=== PATIENT | male | born 1950 | race Caucasian/White ===

== ENCOUNTER 2019-03-12 17:55 | Emergency (ER) | payer MEDICARE ==
[~2019-03-12] VITALS: Ht 167.6 cm; Wt 63.5 kg
[2019-03-12 18:16] VITALS: BP 166/80
[2019-03-12] MEDS ORDERED: EPINEPHrine 1 MG/ML VIAL IM STA (18:17)
[2019-03-12] MEDS ORDERED: methylPREDNISolone SOD SUCC PF 125 MG/2 ML VIAL. ONE (18:18)
[2019-03-12] MEDS ORDERED: EPINEPHrine 1 MG/ML VIAL ONE (18:18)
[2019-03-12] MEDS ORDERED: FAMOTIDINE 20 MG/2 ML VIAL ONE (18:18)
--- NOTE | 2019-03-12 18:25 | PHYS DOC ---
Adult General Chief Complaint Chief Complaint: INSECT BITE HPI HPI Patient is a 68 year old male who presents to the ER after being stung by bee around 5:30 PM when he was mowing. The patient has had a previous stinging and had an anaphylactic reaction to it so patient came to the ER. The patient states he is out of his EpiPen. States that he feels his throat is starting to close. The patient states that his pain levels 3 out of 10 in severity. Did not taking medicine prior to arrival. Review of Systems Review of Systems Constitutional: Denies fever or chills [] Eyes: Denies change in visual acuity, redness, or eye pain [] HENT: Reports throat swelling. Respiratory: Denies cough or shortness of breath [] Cardiovascular: No additional information not addressed in HPI [] GI: Denies abdominal pain, nausea, vomiting, bloody stools or diarrhea [] : Denies dysuria or hematuria [] Musculoskeletal: Denies back pain or joint pain [] Integument: Denies rash or skin lesions [] Neurologic: Denies headache, focal weakness or sensory changes [] Endocrine: Denies polyuria or polydipsia [] Complete systems were reviewed and found to be within normal limits, except as documented in this note. Current Medications Current Medications Current Medications Medications (Trade) Dose Ordered Sig/Rolando Start Time Stop Time Status Last Admin Dose Admin Diphenhydramine HCl (Benadryl) 50 mg 1X ONCE 03/12/19 18:30 03/12/19 18:31 UNV 03/12/19 18:27 50 MG Epinephrine HCl (Adrenalin) 0.3 mg 1X STAT 03/12/19 18:17 03/12/19 18:18 UNV 03/12/19 18:20 0.3 MG Famotidine (Pepcid Vial) 20 mg STK-MED ONCE 03/12/19 18:18 03/12/19 18:19 DC Methylprednisolone Sodium Succinate (SOLU-Medrol 125MG VIAL) 125 mg 1X ONCE 03/12/19 18:30 03/12/19 18:31 UNV 03/12/19 18:27 125 MG Physical Exam Physical Exam Constitutional: Well developed, well nourished, no acute distress, non-toxic appearance. [] HENT: Normocephalic, atraumatic, bilateral external ears normal, oropharynx moist, no oral exudates, nose normal. [] Eyes: PERRLA, EOMI, conjunctiva normal, no discharge. [] Neck: Normal range of motion, swelling to left side of neck and erythema, no st ridor. Cardiovascular:Heart rate regular rhythm, no murmur [] Lungs & Thorax: Bilateral breath sounds clear to auscultation [] Abdomen: Bowel sounds normal, soft, no tenderness, no masses, no pulsatile masses. [] Skin: Warm, dry, no erythema, no rash. [] Back: No tenderness, no CVA tenderness. [] Extremities: No tenderness, no cyanosis, no clubbing, ROM intact, no edema. [] Neurologic: Alert and oriented X 3, normal motor function, normal sensory function, no focal deficits noted. [] Psychologic: Affect normal, judgement normal, mood normal. [] Current Patient Data Vital Signs Vital Signs Date Time Temp Pulse Resp B/P (MAP) Pulse Ox O2 Delivery O2 Flow Rate FiO2 03/12/19 18:16 97.9 74 20 166/80 (108) 94 Room Air 97.9 EKG EKG [] Radiology/Procedures Radiology/Procedures [] Course & Med Decision Making Course & Med Decision Making Pertinent Labs and Imaging studies reviewed. (See chart for details) Ordered Epi IM, benadryl, and solumedrol. Patient improved after EpiPen. Will d/c home with script for Epi Pen. Dragon Disclaimer Dragon Disclaimer This electronic medical record was generated, in whole or in part, using a voice recognition dictation system. Departure Departure Impression: Primary Impression: Allergic reaction to bee sting Disposition: 01 HOME, SELF-CARE Condition: STABLE Referrals: DERRELL DUONG (PCP) Patient Instructions: Bee, Wasp, or Hornet Sting, Epinephrine injection (Auto- injector) Additional Instructions: Thank you for visiting [facility]. We appreciate you trusting us with your care. If any additional problems come up don't hesitate to return to visit us. Please follow up with your primary care provider so they can plan additional care if needed and know about the problem that you had. If symptoms worsen come back to the Emergency Department. Any concerning symptoms that start such as chest pain, shortness of air, weakness or numbness on one side of the body, running high fevers or any other concerning symptoms return to the ER. Please fill your medications at any pharmacy and follow the prescription instructions. Please come to ER after using Epi pen. Scripts Epinephrine (EPIPEN 2-NANDO) 0.3 Mg/0.3 Ml Auto.injct 0.3 MG IJ 1X PRN for ANAPHYLAXIS, #1 SYR Prov: EDILIA VELEZ APRN 03/12/19 EDILIA VELEZ APRN Mar 12, 2019 18:25
[2019-03-12] MEDS ORDERED: diphenhydrAMINE 50 MG/ML VIAL ONE (18:26)
[2019-03-12] MEDS ORDERED: methylPREDNISolone SOD SUCC PF 125 MG/2 ML VIAL. IV ONE (18:30)
[2019-03-12] MEDS ORDERED: diphenhydrAMINE 50 MG/ML VIAL IVP ONE (18:30)
[2019-03-12] MEDS ORDERED: EPIPEN 2-P0.3 MG/0.3 IJ (19:27)
== END 2019-03-12 19:35 | disposition home or self-care (01) ==
LOC: ER 17:55
DX: T63.441A Toxic effect of venom of bees, accidental (unintentional), initial encounter (principal); T78.40XA Allergy, unspecified, initial encounter; Y92.89 Other specified places as the place of occurrence of the external cause
CPT/HCPCS: 96372; 96374; 96375; 99284; J0171; J1200; J2930

== ENCOUNTER 2020-03-01 19:29 | Emergency (ER) | payer MEDICARE ==
[~2020-03-01] VITALS: Ht 167.6 cm; Wt 62.7 kg
[~2020-03-01 19:29] MED LIST: EPIPEN 2-P0.3 MG/0.3 IJ
[2020-03-01] MEDS ORDERED: IV NORMAL SALINE 500ML BAG 1,000 ML IV ONE (20:15)
[2020-03-01] MEDS ORDERED: FAMOTIDINE 20 MG/2 ML VIAL IVP ONE (20:15)
[2020-03-01] MEDS ORDERED: diphenhydrAMINE 50 MG/ML VIAL IV ONE (20:15)
[2020-03-01] MEDS ORDERED: EPINEPHrine 1 MG/ML VIAL IM ONE (20:15)
[2020-03-01] MEDS ORDERED: methylPREDNISolone SOD SUCC PF 125 MG/2 ML VIAL. IV ONE (20:15)
[2020-03-01] MEDS ORDERED: ASPI-630 PO (20:22)
[2020-03-01] MEDS ORDERED: PRAV80TA2 PO (20:23)
[2020-03-01] MEDS ORDERED: EPIPEN 2-P0.3 MG/0.3 IM (20:23)
[2020-03-01] MEDS ORDERED: NITR0.4T24 SL (20:23)
[2020-03-01] MEDS ORDERED: IV NORMAL SALINE 1000ML BAG 1,000 ML IV ONE (20:30)
--- NOTE | 2020-03-01 20:42 | PHYS DOC ---
Past Medical History Past Medical History: High Cholesterol, Kidney Stone, [place] Past Surgical History: Other Additional Past Surgical Histo: back surgery, shoulder, lithrotripsy, cardiac stents, Smoking Status: Never Smoker Alcohol Use: None Drug Use: None General Adult EDM: Chief Complaint: ALLERGIC REACTION HPI: HPI: The history was obtained from the patient. Patient is a 69-year-old male with PMH coronary artery disease, [place], hyperlipidemia, allergies to bee stings who presents with a chief complaint of allergic reaction. Patient states 1 hour prior to arrival he was stung on the dorsal aspect of his left hand. He notes localized swelling in that area. He also states that he feels as though his tongue is swelling. He denies any difficulty breathing. Denies any wheezes. Denies any rash or vomiting. States he has had previous bee stings with much more severe reactions. He did try 125 mg Benadryl tablet prior to arrival. He denies any chest pain. No other complaints. Review of Systems: Review of Systems: Constitutional: Denies fever or chills. [] Eyes: Denies change in visual acuity. [] HENT: Positive for throat swelling Respiratory: Denies cough or shortness of breath. [] Cardiovascular: Denies chest pain or edema. [] GI: Denies abdominal pain, nausea, vomiting, bloody stools or diarrhea. [] : Denies dysuria. [] Musculoskeletal: Denies back pain or joint pain. [] Integument: Denies rash. [] Neurologic: Denies headache, focal weakness or sensory changes. [] Endocrine: Denies polyuria or polydipsia. [] Lymphatic: Denies swollen glands. [] Psychiatric: Denies depression or anxiety. [] Heart Score: Risk Factors: Risk Factors: DM, Current or recent (<one month) smoker, HTN, HLP, family history of CAD, obesity. Risk Scores: Score 0 - 3: 2.5% MACE over next 6 weeks - Discharge Home Score 4 - 6: 20.3% MACE over next 6 weeks - Admit for Clinical Observation Score 7 - 10: 72.7% MACE over next 6 weeks - Early Invasive Strategies Current Medications: Current Medications Medications (Trade) Dose Ordered Sig/Rolando Start Time Stop Time Status Last Admin Dose Admin Diphenhydramine HCl (Benadryl) 25 mg 1X ONCE 03/01/20 20:15 03/01/20 20:24 DC 03/01/20 20:20 25 MG Epinephrine HCl (Adrenalin) 0.3 mg 1X ONCE 03/01/20 20:15 03/01/20 20:24 DC 03/01/20 20:20 0.3 MG Famotidine (Pepcid Vial) 20 mg 1X ONCE 03/01/20 20:15 03/01/20 20:24 DC 03/01/20 20:20 20 MG Methylprednisolone Sodium Succinate (SOLU-Medrol 125MG VIAL) 125 mg 1X ONCE 03/01/20 20:15 03/01/20 20:24 DC 03/01/20 20:20 125 MG Sodium Chloride 1,000 ml @ 100 mls/hr 1X ONCE 03/01/20 20:30 03/02/20 06:29 03/01/20 20:34 100 MLS/HR Allergies: Allergies: Allergies Coded Allergies Type Severity Reaction Last Updated Verified bee venom protein (honey bee) Allergy Unknown ANAPHALXIS - HAS EPI PEN 03/01/20 Yes ciprofloxacin Allergy Unknown RASH 03/01/20 Yes Physical Exam: PE: Constitutional: Well developed, well nourished, no acute distress, non-toxic appearance. [] HENT: Normal phonation. No trismus. No tonsillar swelling appreciated. No stridulous breath sounds noted over the anterior neck Eyes: PERRLA, EOMI, conjunctiva normal, no discharge. [] Neck: Normal range of motion, no tenderness, supple, no stridor. [] Cardiovascular:Heart rate regular rhythm, no murmur [] Lungs & Thorax: Bilateral breath sounds clear to auscultation [] Abdomen: Bowel sounds normal, soft, no tenderness, no masses, no pulsatile masses. [] Skin: Warm, dry, no erythema, no rash. [] Back: No tenderness, no CVA tenderness. [] Extremities: Mild localized swelling over the bee sting site on the dorsum of the left hand. No retained stinger identified. Neurologic: Alert and oriented X 3, normal motor function, normal sensory function, no focal deficits noted. [] Psychologic: Affect normal, judgement normal, mood normal. [] Current Patient Data: Vital Signs: Vital Signs Date Time Temp Pulse Resp B/P (MAP) Pulse Ox O2 Delivery O2 Flow Rate FiO2 03/01/20 20:07 98.8 59 18 194/80 (118) 97 Room Air 98.8 EKG: EKG: [] Radiology/Procedures: Radiology/Procedures: [] Course & Med Decision Making: Course & Med Decision Making Pertinent Labs and Imaging studies reviewed. (See chart for details) Patient is a 69-year-old male who presents with a complaint of allergic reaction. He does report some throat closing sensation. Given this intramuscular epinephrine was administered. Additional IV Solu-Medrol, Pepcid, and Benadryl were administered. He was monitored closely. He states his symptoms have improved significantly while in the emergency department. Overall my initial examination patient did not show signs of respiratory compromise. I do feel is reasonable to discharge patient home. He will be given a short course of oral steroids to go home with. He does understand the signs and symptoms to watch out for regarding return to the emergency department. He was instructed to follow-up with a primary care physician. Return precautions discussed and understood. Stable for discharge home. Andrew Disclaimer: Andrew Disclaimer: This electronic medical record was generated, in whole or in part, using a voice recognition dictation system. Departure Departure Disposition: 01 HOME, SELF-CARE Condition: GOOD Referrals: UNKNOWN PCP NAME (PCP) Patient Instructions: Anaphylactic Reaction Additional Instructions: [facility] [address] [place] [address] [facility] [address] [place] [address] [facility] [address] [facility] [place] [address] [facility] [address] [place] [address] [facility] [address] [place] [address] [address] [place] [address] [address] [place] [address] [facility] [address] [place] [address] [facility] [address] [place] [address] [id number] [place] [address] Scripts Prednisone (PREDNISONE) 20 Mg Tablet 1 TAB PO DAILY for 5 Days, #5 TAB Prov: TIA ORELLANA DO 03/01/20 Justicifation of Admission Dx: Justifications for Admission: Justification of Admission Dx: N/A TIA ORELLANA DO Mar 01, 2020 20:41
[2020-03-01] MEDS ORDERED: PRED20TA PO (21:32)
[2020-03-01 21:42] VITALS: BP 148/65
== END 2020-03-01 21:45 | disposition home or self-care (01) ==
LOC: ER 19:29
DX: T63.441A Toxic effect of venom of bees, accidental (unintentional), initial encounter (principal); T78.40XA Allergy, unspecified, initial encounter; E78.00 Pure hypercholesterolemia, unspecified; I25.2 Old myocardial infarction; Z87.442 Personal history of urinary calculi; Z95.5 Presence of coronary angioplasty implant and graft; Z88.1 Allergy status to other antibiotic agents; Z91.030 Bee allergy status; Y92.89 Other specified places as the place of occurrence of the external cause
CPT/HCPCS: 96372; 96374; 96375; 99285; J0171; J1200; J2930; J3490; J7030